=== PATIENT | male | born 1965 | race Caucasian/White ===

== ENCOUNTER 2016-12-12 10:41 | Day surgery (SDC) | payer OTHER ==
[2016-12-08 11:36] VITALS: BMI 25.8
[~2016-12-12 10:41] MED LIST: LACTATED RINGERS 1,000 ML IV SCH
[2016-12-12] MEDS ORDERED: LIDOCAINE 1% 20 ML VIAL (10MG/ML) FOR IV START INTRADERMA ONE (10:58)
[2016-12-12 11:00] VITALS: TEMP 97.8
[2016-12-12] MEDS ORDERED: LIDOCAINE 1% INJ 10MG/ML (20 ML MDV) ONE (12:31)
[2016-12-12] MEDS ORDERED: PROPOFOL 10 MG/ML 20 ML VIAL IV ONE (12:31)
--- NOTE | 2016-12-12 12:57 | P.PCN ---
Date of Procedure: 12/12/16 Procedure(s) Performed: Procedure: Total colonoscopy. Preoperative diagnosis: Screening for neoplasia. Postoperative diagnosis: Exam within normal limits. Preparation: HalfLytely prep. Sedation: Was provided by anesthesia. Brief clinical history: The patient is a 51-year-old male who is referred for this evaluation for screening for neoplasia age being his risk factor. He has no abdominal complaints, bleeding or anemia. No family history of colon cancer. This would be his first colonoscopy. Procedure: With the patient on his left lateral decubitus position and after informed consent and adequate sedation, the perianal area was inspected and it did not show any fissures or fistulas. There were no masses felt on digital rectal examination. The Olympus CFQ 160L video colonoscope was then inserted in the rectum in the usual fashion and advanced to the cecum. The mucosa appeared healthy. No polyps or tumors were seen or any obvious diverticular disease or other pathology. I retroflexed the endoscope in the rectum before the endoscope was withdrawn. The patient tolerated the procedure well. Plan: The patient was reassured. He will follow up with you as planned and I recommended repeat exam in 10 years.
[2016-12-12 13:30] VITALS: RESP 18
[2016-12-12 13:32] VITALS: BP 109/70; PULSE 58
== END 2016-12-12 13:42 | disposition home or self-care (01) ==
LOC: ORWHC2ENDO 10:41
DX: Z12.11 Encounter for screening for malignant neoplasm of colon (principal); Z87.891 Personal history of nicotine dependence
CPT/HCPCS: J2001; J2704; G0121